=== PATIENT | female | born 1970 | race Caucasian/White ===

== ENCOUNTER 2019-03-25 00:15 | Emergency (ER) | payer SELFPAY ==
[~2019-03-25] VITALS: Ht 165.1 cm; Wt 122.0 kg
[2019-03-25 00:22] VITALS: BP 152/93
--- NOTE | 2019-03-25 00:30 | NUR ---
PT AMBULATED TO ER BED 2
[2019-03-25] MEDS ORDERED: IBUPROFEN 600 MG TAB PO ONE (00:40)
[2019-03-25 01:02] LABS: APPEARANCE,URINE CLEAR (CLEAR); BILIRUBIN,URINE NEGATIVE (NEGATIVE); BLOOD, URINE 2+ (NEGATIVE); COLOR,URINE YELLOW (YELLOW); LEUKOCYTE ESTERASE ,URINE NEGATIVE (NEGATIVE); NITRITE, URINE NEGATIVE (NEGATIVE); UGLUCOSE NEGATIVE (NEGATIVE)
--- NOTE | 2019-03-25 01:03 | NUR ---
PT TO ED WITH C/O LLQ PAIN X 2 DAYS. PT DENIES N/V. NO FEVER/CHILLS. PT REPORTS PAIN RADIATING TO LOWER BACK ONLY WHEN WALKING. PT DENIES DYSURIA OR BLEEDING. ABD IS SOFT NON TENDER. NO OBVIOUS DISTENTION. BOWEL SOUNDS ACTIVE X 4 QUADRANTS. PT PLACED INTO BED, PENDING MD RIZZO.
[2019-03-25 01:09] LABS: WBC,URINE 0-5 /HPF (0-5)
--- NOTE | 2019-03-25 03:24 | NUR ---
CALL TO RADIOLOGY FOR UPDATE ON ETA OF ULTRASOUND. PER CAROLYN, "SHE SHOULD BE THERE SOON, I'LL CALL HER AGAIN." WILL CONTINUE TO FOLLOW UP.
--- NOTE | 2019-03-25 04:00 | NUR ---
US AT BEDSIDE
[2019-03-25 04:40] VITALS: BP 143/84
== END 2019-03-25 04:40 | disposition home or self-care (01) ==
LOC: MED 00:15
DX: D25.9 Leiomyoma of uterus, unspecified (principal); N85.8 Other specified noninflammatory disorders of uterus; D36.9 Benign neoplasm, unspecified site
CPT/HCPCS: 74176; 76856; 81001; 81025; 99284; Q0092

== ENCOUNTER 2019-11-16 22:10 | Emergency (ER) | payer MEDICAID ==
[~2019-11-16] VITALS: Ht 165.1 cm; Wt 131.8 kg
[2019-11-16 22:20] VITALS: BP 140/90
--- NOTE | 2019-11-16 22:23 | NUR ---
TO LOBBY A/W BED AMBULATORY
--- NOTE | 2019-11-16 22:37 | NUR ---
AMBULATED WITH FAMILY Addendum: 11/16/19 at 2237 by [email or web address] AMBULATED WITH FAMILY TO BED #11
--- NOTE | 2019-11-16 22:43 | NUR ---
Pt c/o left knee pain and slight right knee pain. pt states falling x 2 years ago. Pt able to ambulate to bed. Pt pmsc intact. pt denies any recent falls. pt pain is 5/10. pt denies taking any pain medication. pt states taking ibuprofen 2 days ago and it helped with pain. DENIES N/V/D; SKIN IS PINK/WARM/DRY; AAOX4 WITH EVEN AND STEADY GAIT; LUNGS CLEAR BL; HR EVEN AND REGULAR; PT DENIES ANY FEVER, CP, SOB, OR COUGH AT THIS TIME; PATIENT STATES PAIN OF 5/10 AT THIS TIME; VSS; PATIENT POSITIONED FOR COMFORT; HOB ELEVATED; BEDRAILS UP X2; BED DOWN. ER MADE AWARE OF PT STATUS.
[2019-11-17] MEDS ORDERED: KETOROLAC 60 MG/2 ML VIAL IM ONE
--- NOTE | 2019-11-17 00:06 | NUR ---
PT BILATERAL KNEES WRAPPED WITH TIMOTHY WRAPS. +CSM
[2019-11-17 00:42] VITALS: BP 130/84
--- NOTE | 2019-11-17 00:44 | NUR ---
Patient discharged with v/s stable. Written and verbal after care instructions given and explained. Patient alert, oriented and verbalized understanding of instructions. Ambulatory with steady gait. All questions addressed prior to discharge. ID band removed. Patient advised to follow up with PMD. Rx of MOTRIN AND TRAMADOL given. Patient educated on indication of medication including possible reaction and side effects. Opportunity to ask questions provided and answered.
== END 2019-11-17 00:34 | disposition home or self-care (01) ==
LOC: MED 22:10
DX: M25.561 Pain in right knee (principal); M25.562 Pain in left knee
CPT/HCPCS: 73562; 96372; 99283; J1885; Q0092